=== PATIENT | female | born 1995 | race Caucasian/White ===

== ENCOUNTER 2021-04-17 10:05 | Day surgery (SDC) | payer MEDICAID ==
[2021-04-17 11:34] LABS: Fetal Membranes Rupture No Membranes Rupture (No Rupture)
[2021-04-17] MEDS ORDERED: hydrALAZINE 20 MG/ML VIAL SLOW IVP PRN (11:42)
[2021-04-17] MEDS ORDERED: Lactated Ringer's 1,000 ML IV SCH ×2 (13:00)
[2021-04-17 13:17] LABS: Bilirubin Neg (Negative); Blood, Urine Negative (Negative); Clarity Clear (Clear); Glucose, Urine (Dipstick) Normal (Negative); Ketone, Urine Negative (Negative); Leukocyte Negative (Negative); Nitrite Negative (Negative); Protein, Urine (Dipstick) Negative (Neg-Trace); Specific Gravity, Urine 1.015 (1.002-1.036); Urobilinogen Normal mg/dL (Less than 2)
[2021-04-17 13:22] LABS: Urine Culture Reflex No No
[2021-04-17 13:28] LABS: Bacteria/HPF None Seen HPF (None Seen); RBC/HPF 0-3 HPF (0-3); Squamous Epithelial 0-3 HPF (0-3); WBC/HPF None Seen HPF (0-3)
[2021-04-19 21:24] LABS: Chlamydia by PCR Not Detected (NotDetected); GC by PCR Not Detected (NotDetected)
== END 2021-04-17 16:20 | disposition home or self-care (01) ==
LOC: CSHLD/OP 10:05
PROVIDERS: ATTEND Family Medicine
DX: O36.8130 Decreased fetal movements, third trimester, not applicable or unspecified (principal); O46.93 Antepartum hemorrhage, unspecified, third trimester; O99.891 Other specified diseases and conditions complicating pregnancy; N89.8 Other specified noninflammatory disorders of vagina; O24.419 Gestational diabetes mellitus in pregnancy, unspecified control; Z3A.29 29 weeks gestation of pregnancy; Z87.891 Personal history of nicotine dependence
CPT/HCPCS: 36416; 76815; 81001; 84112; 87480; 87491; 87510; 87591; 87660

== ENCOUNTER 2021-05-12 20:08 | Day surgery (SDC) | payer OTHER ==
[2021-05-12] MEDS ORDERED: hydrALAZINE 20 MG/ML VIAL SLOW IVP PRN (20:23)
[2021-05-12 20:35] VITALS: BMI 40.0
[2021-05-12] MEDS ORDERED: Morphine 4 MG/ML VIAL IM PRN (21:16)
[2021-05-12 21:31] LABS: Bilirubin Neg (Negative); Blood, Urine Negative (Negative); Clarity Slightly Cloudy (Clear); Glucose, Urine (Dipstick) Normal (Negative); Ketone, Urine Negative (Negative); Leukocyte Negative (Negative); Nitrite Negative (Negative); Protein, Urine (Dipstick) 15 mg/dl (Neg-Trace); Specific Gravity, Urine 1.015 (1.002-1.036); Urobilinogen Normal mg/dL (Less than 2)
[2021-05-12 21:39] LABS: Bacteria/HPF None Seen HPF (None Seen); RBC/HPF 0-3 HPF (0-3); Squamous Epithelial 0-3 HPF (0-3); Transitional Epithelial 0-3 HPF (None Seen); Urine Culture Reflex No No; WBC/HPF 0-3 HPF (0-3)
== END 2021-05-12 22:31 | disposition home or self-care (01) ==
LOC: CSHLD/OP 20:08
PROVIDERS: ATTEND Family Medicine
DX: O26.893 Other specified pregnancy related conditions, third trimester (principal); R10.9 Unspecified abdominal pain; M54.50 Low back pain, unspecified; O24.410 Gestational diabetes mellitus in pregnancy, diet controlled; O41.03X0 Oligohydramnios, third trimester, not applicable or unspecified; O99.333 Smoking (tobacco) complicating pregnancy, third trimester; F17.210 Nicotine dependence, cigarettes, uncomplicated; Z3A.32 32 weeks gestation of pregnancy
CPT/HCPCS: 51701; 81001; 96372; 99282; J2270

== ENCOUNTER 2021-06-13 10:10 | Outpatient (CLI) | payer MEDICAID ==
[2021-06-13 18:05] LABS: SARS-CoV-2 PCR by NAA Not Detected (NotDetected)
== END 2021-06-13 10:11 | disposition home or self-care (01) ==
LOC: CSHLAB 10:10
PROVIDERS: ATTEND Family Medicine
DX: Z20.822 Contact with and (suspected) exposure to COVID-19 (principal)
CPT/HCPCS: U0003; U0005

== ENCOUNTER 2021-06-17 18:00 | Inpatient (IN) | payer MEDICAID ==
[~2021-06-17 18:00] MED LIST: Bupivacaine 0.25% HCL 30 ML VIAL ONE; ePHEDrine Sulfate 50 MG/10 ML VIAL ONE
[2021-06-17 20:52] VITALS: BMI 41.0
[2021-06-17] MEDS ORDERED: Diphenoxylate HCl/Atropine Tablet PO PRN (20:52)
[2021-06-17] MEDS ORDERED: Methylergonovine 0.2 MG/ML VIAL IM PRN (20:52)
[2021-06-17] MEDS ORDERED: Promethazine HCl 25 MG/ML VIAL IM PRN (20:52)
[2021-06-17] MEDS ORDERED: hydrALAZINE 20 MG/ML VIAL SLOW IVP PRN (20:52)
[2021-06-17] MEDS ORDERED: HYDROcodone/Acetaminophen 5/325 mg Tablet PO PRN (20:52)
[2021-06-17] MEDS ORDERED: Ondansetron PF 4 MG/2 ML Vial IVP PRN (20:52)
[2021-06-17] MEDS ORDERED: Acetaminophen 500 MG TAB PO PRN (20:52)
[2021-06-17] MEDS ORDERED: Butorphanol Tartrate 1 MG/ML VIAL SLOW IVP PRN (20:52)
[2021-06-17] MEDS ORDERED: Ibuprofen 800 MG TAB PO PRN (20:52)
[2021-06-17] MEDS ORDERED: Misoprostol 200 MCG TAB PR PRN (20:52)
[2021-06-17] MEDS ORDERED: Carboprost 250 MCG/ML AMP IM PRN (20:52)
[2021-06-17] MEDS ORDERED: Lidocaine 1% (PF) 30 ML VIAL SC PRN (20:52)
[2021-06-17] MEDS ORDERED: NS w/ Oxytocin 30 units 500 ML IV SCH ×2 (21:00)
[2021-06-17] MEDS ORDERED: NS w/ Oxytocin 30 units 500 ML IVPB SCH (21:00)
[2021-06-17] MEDS ORDERED: Misoprostol 100 MCG TAB ONE (21:26)
[2021-06-17 21:28] LABS: Mean Corpuscular HGB CONC 32.4 g/dL (32.0-36.0); Mean Corpuscular Hemoglobin 28.6 pg (27.0-33.0); Mean Corpuscular Volume 88.3 fl (81.6-98.3); Mean Platelet Volume 10.8 fl (7.4-10.4); Platelet Count 267 10x3/uL (150-450); RBC Distribution Width 14.4 % (11.5-14.5); Red Blood Cell (RBC) Count 3.85 10x6/uL (3.90-5.03)
[2021-06-17 21:56] LABS: Hep B Surf Ag Non-Reactive S/CO (NonReactive); Syphilis Antibody Nonreactive (Nonreactive); Syphilis Antibody Index 0.03 S/CO (<1.00 Non-Reactive)
[2021-06-17 22:02] LABS: HBSAg Index 0.19 S/CO (0-0.99)
[2021-06-18] MEDS ORDERED: Misoprostol 100 MCG TAB PO SCH (01:00)
[2021-06-18] MEDS ORDERED: Fentanyl 2 mcg/Bup 0.1% Cadd 100 ML ONE ×2 (07:49→15:43)
[2021-06-18] MEDS: Lactated Ringer's 1,000 ML IV SCH ×3 (08:11→18:48)
[2021-06-18] MEDS: Fentanyl 2 mcg/Bupivacaine 0.1% Cassette 100 ML EPIDURAL SCH ×2 (08:46→15:43)
[2021-06-18] MEDS ORDERED: Promethazine HCl 25 MG/ML VIAL IM PRN ×2 (09:02→19:07)
[2021-06-18] MEDS ORDERED: diphenhydrAMINE 50 MG/ML VIAL IVP PRN (09:02)
[2021-06-18] MEDS ORDERED: Hydrocerin (Eucerin) Cream 120 gm Jar TOP PRN (09:02)
[2021-06-18] MEDS ORDERED: Acetaminophen 325 MG TAB PO PRN (09:02)
[2021-06-18] MEDS ORDERED: Lactated Ringer's 500 ML IV PRN (09:02)
[2021-06-18] MEDS ORDERED: Naloxone HCl 0.4 mg/ml Vial IVP PRN ×2 (09:02)
[2021-06-18] MEDS ORDERED: Ondansetron PF 4 MG/2 ML Vial IVP PRN ×2 (09:02→19:07)
[2021-06-18] MEDS ORDERED: ePHEDrine Sulfate 50 MG/10 ML VIAL SLOW IVP PRN (09:02)
[2021-06-18] MEDS ORDERED: Communication Order-Pharmacy FS SCH (09:15)
[2021-06-18] MEDS ORDERED: diphenhydrAMINE 25 MG CAP PO PRN (19:07)
[2021-06-18] MEDS ORDERED: hydrALAZINE 20 MG/ML VIAL SLOW IVP PRN (19:07)
[2021-06-18] MEDS ORDERED: Benzocaine-Menthol 82.5 ML CAN TOP PRN (19:07)
[2021-06-18] MEDS ORDERED: Bisacodyl 10 MG SUPP PR PRN (19:07)
[2021-06-18] MEDS ORDERED: Boostrix 0.5 ML (Tdap) VIAL IM ONE (19:07)
[2021-06-18] MEDS ORDERED: Milk Of Magnesia 30 ML UDCUP PO PRN (19:07)
[2021-06-18] MEDS: HYDROcodone/Acetaminophen 5/325 mg Tablet PO PRN ×2 (19:41→23:48)
[2021-06-18] MEDS: Docusate Calcium (SURFAK) 240 MG CAP PO SCH (21:02)
[2021-06-18] MEDS: Ibuprofen 800 MG TAB PO SCH (23:37)
[2021-06-19] MEDS: Ibuprofen 800 MG TAB PO SCH ×2 (05:03→13:53)
[2021-06-19] MEDS: Ferrous Sulfate 325 MG TAB PO SCH ×2 (07:48→16:44)
[2021-06-19] MEDS: Docusate Calcium (SURFAK) 240 MG CAP PO SCH (09:11)
[2021-06-19] MEDS: HYDROcodone/Acetaminophen 5/325 mg Tablet PO PRN ×2 (09:12→19:14)
[2021-06-19 11:39] VITALS: BP 134/65; TEMP 97.8
== END 2021-06-19 19:55 | disposition home or self-care (01) | DRG 807 ==
LOC: CSHLD 20:12 → EEVIPCON 20:12 → CSHPP 06-18 19:55
PROVIDERS: ADMIT Family Medicine; ATTEND Family Medicine
PROC: 10E0XZZ Delivery of Products of Conception, External Approach (ICD-10-PCS; principal; 2021-06-17)
DX: O24.420 Gestational diabetes mellitus in childbirth, diet controlled (principal); Z37.0 Single live birth; Z3A.39 39 weeks gestation of pregnancy
CPT/HCPCS: 36415; 36416; 51702; 85027; 86780; 86850; 86900; 86901; 87340; J1200; J2210; J2405; J2590; J7120; S0020